=== PATIENT | female | born 1960 | race Caucasian/White ===

== ENCOUNTER → 2017-03-31 | Outpatient (CLI) | payer OTHER ==
[~2017-03-31] MED LIST: CYMBALTA60 MG PO; FLEXERIL10 MG PO; HYDRODIURIL25 MG PO; LEVOTHROID (SY50 MCG PO; LOPRESSOR50 MG PO; MOTRIN800 MG PO
== END | disposition disaster alternative care site (69) ==
LOC: GRAD 09:48
DX: Z47.89 Encounter for other orthopedic aftercare (principal); M47.892 Other spondylosis, cervical region

== ENCOUNTER → 2017-06-24 | Outpatient (CLI) | payer SELFPAY | END | disposition disaster alternative care site (69) | LOC: GPOC 06-19 13:00 | PROC: 0JB43ZX Excision of Right Neck Subcutaneous Tissue and Fascia, Percutaneous Approach, Diagnostic (ICD-10-PCS; principal; 2017-06-24) | PROC: BH4CZZZ Ultrasonography of Head and Neck (ICD-10-PCS; 2017-06-24) | DX: E04.2 Nontoxic multinodular goiter (principal) | CPT/HCPCS: J2001; J7120 ==